=== PATIENT | female | born 1990 | race Caucasian/White ===

== ENCOUNTER 2025-01-08 22:41 | Emergency (ER) | payer OTHER ==
[~2025-01-08] VITALS: Ht 165.1 cm; Wt 95.0 kg
[~2025-01-08 22:41] MED LIST: CALCIUM + VITA1 EACH PO; D 3; FLOMAX0.4 MG PO; KEPPRA500 MG PO; LAMICTAL200 MG PO; NORCO 5-325 TA1 EACH PO; PRENATAL TABLE1 EAC1 PO; VITAMIN D31000 UNI1 PO; ZOFRAN ODT4 MG PO
[2025-01-08] MEDS ORDERED: levETIRAcetam 500 MG TAB PO ONE (23:15)
[2025-01-08] MEDS ORDERED: KEPPRA500 MG PO (23:37)
[2025-01-08 23:53] VITALS: BP 134/93
== END 2025-01-08 23:53 | disposition home or self-care (01) ==
LOC: ED 22:41
DX: G40.909 Epilepsy, unspecified, not intractable, without status epilepticus (principal); F17.200 Nicotine dependence, unspecified, uncomplicated; Z76.0 Encounter for issue of repeat prescription; Z79.899 Other long term (current) drug therapy; Z88.8 Allergy status to other drugs, medicaments and biological substances
CPT/HCPCS: 99281

== ENCOUNTER 2025-01-15 10:42 | Emergency (ER) | payer OTHER ==
[~2025-01-15] VITALS: Ht 165.1 cm; Wt 93.0 kg
--- OUTSIDE RECORDS SUMMARY | 2025-01-15 10:48 | XMS ---
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 Richard VISIT COUNT (12 MO.) 2 [facility] TOTAL 2 NOTE: Visits indicate total known visits. ED/UCC VISIT TRACKING (12 MO.) 01/15/2025 10:42 [facility] TYPE: Emergency COMPLAINT: - POSS ALLERGIC REACTION 01/08/2025 22:42 [facility] TYPE: Emergency COMPLAINT: - MEDICATION REFILL DIAGNOSES: - Allergy status to other drugs, medicaments and biological substances - Encounter for issue of repeat prescription - Epilepsy, unspecified, not intractable, without status epilepticus - Nicotine dependence, unspecified, uncomplicated - Other care home (current) drug therapy INPATIENT VISIT TRACKING (12 MO.) No inpatient visits to display in this time frame [email or web address]
[2025-01-15] MEDS ORDERED: LEVOTHYROXINE125 MCG PO (10:53)
[2025-01-15] MEDS ORDERED: BENADRYL25 MG PO (11:20)
[2025-01-15] MEDS ORDERED: PEPCID20 MG PO (11:20)
[2025-01-15] MEDS ORDERED: PREDNISONE20 MG PO (11:20)
[2025-01-15 11:27] VITALS: BP 136/88
== END 2025-01-15 11:27 | disposition home or self-care (01) ==
LOC: ED 10:42
DX: L50.9 Urticaria, unspecified (principal); F17.200 Nicotine dependence, unspecified, uncomplicated; Z88.8 Allergy status to other drugs, medicaments and biological substances; Z79.890 Hormone replacement therapy; Z79.899 Other long term (current) drug therapy
CPT/HCPCS: 99282